=== PATIENT | female | born 1980 | race Caucasian/White ===

== ENCOUNTER 2017-01-31 11:13 | Inpatient (IN) | payer OTHER ==
[2017-01-31] MEDS ORDERED: BETAMET ACET/BETAMET NA PH 30 MG/5 ML VIAL IM ONE (12:00)
[2017-01-31 12:31] VITALS: BMI 27.8
[2017-01-31 13:39] LABS: ALBUMIN 2.9 g/dl (3.4-5.0); ALK PHOS 143 U/L (45-117); ANION GAP 9 (8-16); BILIRUBIN,TOTAL 0.5 mg/dL (0.2-1.0); CALCIUM 8.5 mg/dL (8.5-10.1); CO2 24 mmol/L (21-32); CREATININE 0.4 mg/dL (0.55-1.02); GLUCOSE,RANDOM 97 mg/dL (74-106); SGOT/AST 18 U/L (15-37); SGPT/ALT 15 U/L (12-78); TOT PROT 6.4 g/dl (6.4-8.2)
[2017-01-31 13:53] LABS: INR 0.95 (0.82-1.09); PROTHROMBIN TIME (PATIENT) 10.4 SEC (9.98-11.88)
--- NOTE | 2017-01-31 14:26 | HP ---
Past Medical History - Primary Care Physician PCP:: Mariel Camarena - Admission Chief Complaint: 36yo P1 @ 36.4wks with IUGR, Oligohydramnious, late transfer of care, prior c/s History of Present Illness: 1. Late transfer from [facility] @ 33 wks 2. IUGR < 3%, detected 1st appointment with [facility], elevated dopplers 3. Oligohydramnious 4.AMA - 5.h/o c/section History Source: Patient, Family Member Limitations to Obtaining History: Language Barrier - Past Medical History ...: 2 ...Para: 1 ...Term: 1 ...: 0 ...Spon : 0 ...Induced : 0 ...Multiple Gestation: 0 ...LMP: 05/21/16 ...EDC by [facility]: 02/24/17 - Past Surgical History Past Surgical History: Yes: Hx Myomectomy: No Hx Transabdominal Cerclage: No - Smoking History Smoking history: Never smoked Have you smoked in the past 12 months: No - Alcohol/Substance Use Hx Alcohol Use: No History of Substance Use: reports: None - Social History Usual Living Arrangement: Yes: With Spouse Home Medications - Allergies Allergies/Adverse Reactions: Allergies Allergy/AdvReac Type Severity Reaction Status Date / Time No Known Allergies Allergy Verified 01/30/17 14:12 - Home Medications Home Medications: Ambulatory Orders NK [No Known Home Medication] 01/30/17 Review of Systems - Review of Systems Constitutional: reports: No Symptoms Eyes: reports: No Symptoms HENT: reports: No Symptoms Neck: reports: No Symptoms Cardiovascular: reports: No Symptoms Respiratory: reports: No Symptoms Gastrointestinal: reports: No Symptoms Genitourinary: reports: No Symptoms Breasts: reports: No Symptoms Reported Musculoskeletal: reports: No Symptoms Integumentary: reports: No Symptoms Neurological: reports: No Symptoms Endocrine: reports: No Symptoms Hematology/Lymphatic: reports: No Symptoms Psychiatric: reports: No Symptoms Physical Exam - Maternity Vital Signs: Vital Signs Temperature 98.4 F 01/31/17 12:13 Pulse Rate 65 01/31/17 12:13 Respiratory Rate 14 01/31/17 12:13 Blood Pressure 107/48 01/31/17 12:13 O2 Sat by Pulse Oximetry (%) Constitutional: Yes: Well Nourished HENT: Yes: WNL Neck: Yes: WNL Cardiovascular: Yes: WNL Lungs: Clear to auscultation - Abdominal Exam/OB Fundal Height: 34 Number of Fetuses: Single Presentation: Vertex Contractions: No Monitor Mode: External Heart Rate Location: Midline Category: I Accelerations: Uniform Decelerations: None - Vaginal Exam/OB Vaginal Bleediing: No Amniotic Membrane Status: Intact Presentation: Vertex/Position Station: -3 - Physical Exam Musculoskeletal: Yes: WNL Extremities: Yes: WNL Edema: No Integumentary: Yes: WNL Psychiatric: Yes: WNL - Labs Lab Results: CBC, BMP 01/31/17 12:45 Problem List - Problems (1) Oligohydramnios antepartum Code(s): O41.00X0 - OLIGOHYDRAMNIOS, UNSP TRIMESTER, NOT APPLICABLE OR UNSP (3) Advanced maternal age (AMA) in Code(s): SGL7664 - (4) History of delivery, antepartum Code(s): O34.219 - MATERNAL CARE FOR UNSP TYPE SCAR FROM PREVIOUS DEL Assessment/Plan 36 yo P1 @ 36.4 wks with IUGR/Oligo admit for repeat c/section FHR reasuring Statistical Analyst for delivery Anesthesia aware NPO, IVF, Ancef prior to incision
[2017-01-31] MEDS ORDERED: ONDANSETRON 4 MG/2 ML VIAL IVPB PRN (15:24)
[2017-01-31] MEDS ORDERED: morphine SULFATE/Preservative Free 0.5 MG/ML (1cc Syringe) SPIN ONE (15:24)
[2017-01-31 15:33] LABS: ARTERIAL BLD GAS O2 SATURATION 38.6 % (90-98.9); ARTERIAL BLOOD GAS BASE EXCESS -2.8 meq/l (-2-2); ARTERIAL BLOOD GAS HCO3 23.5 meq/L (22-26); ARTERIAL BLOOD GAS pH 7.31 (7.35-7.45)
[2017-01-31 15:34] LABS: ARTERIAL BLOOD GAS PO2 20.2 mmHg (80-100)
[2017-01-31 15:35] LABS: ARTERIAL BLD GAS O2 SATURATION 67.4 % (90-98.9); ARTERIAL BLOOD GAS BASE EXCESS -2.1 meq/l (-2-2); ARTERIAL BLOOD GAS HCO3 22.9 meq/L (22-26); ARTERIAL BLOOD GAS pH 7.36 (7.35-7.45)
[2017-01-31 15:36] LABS: ARTERIAL BLOOD GAS PO2 30.9 mmHg (80-100)
[2017-01-31] MEDS ORDERED: diphenhydrAMINE HCL 25 MG CAPSULE (FP) PO PRN (16:00)
[2017-01-31] MEDS ORDERED: OXYTOCIN 20 UNITS in 0.9% NS 1,000 ML IV SCH (16:00)
[2017-01-31] MEDS ORDERED: WITCH HAZEL 50% (TUCKS) 40 PAD/JAR PAD TP PRN (16:00)
[2017-01-31] MEDS ORDERED: BENZOCAINE 28 GM HEMORRHOIDAL OINTMENT PR PRN (16:00)
[2017-01-31] MEDS ORDERED: BENZOCAINE 20% 57 GM BOTTLE TP PRN (16:00)
[2017-01-31] MEDS ORDERED: oxyCODONE HCL 5 MG TABLET PO PRN ×2 (16:00)
[2017-01-31] MEDS ORDERED: IBUPROFEN 600 MG TABLET (FP) PO PRN (16:00)
[2017-01-31] MEDS ORDERED: METHYLERGONOVINE MALEATE 0.2 MG/1 ML AMP IM PRN (16:00)
[2017-01-31] MEDS ORDERED: IBUPROFEN 800 MG/8 ML IJ IVPB PRN (16:00)
--- NOTE | 2017-01-31 16:08 | OP ---
Operative Note - Note: Operative Date: 01/31/17 Pre-Operative Diagnosis: 36 yo P1 @ 36.4wks with prior c/s, IUGR, Oligohydramnious, s/p Celestone Operation: Repeat lower segment transverse c/section Findings: 1. Bilobed Placenta 2. Normal tubes, ovaries, uterus 3 Viable Female , APGARs 9/9, Rollout Manager at delivery Post-Operative Diagnosis: Same as Pre-op Surgeon: Mariel Camarena Sandwich And Drink Cart Operator: Michele Boyer Anesthesiologist/COMMERCIAL FRONT LOAD DRIVER: Donaldo Bernardo Anesthesia: Spinal Specimens Removed: 1.Viable Female , APGARs 9/9. 2. Bilobed placenta Estimated Blood Loss (mls): 600 Drains, Volume Out (mls): 600 Fluid Volume Replaced (mls): 1,000 Operative Report Dictated: Yes
[2017-01-31] MEDS ORDERED: TUBERCULIN PPD 5 TU/0.1ML SYRINGE (IN PATIENT USE ONLY) ID ONE (16:15)
[2017-01-31] MEDS ORDERED: ELECTROLYTE-148 SOLN 500 ML IV ONE (16:47)
[2017-01-31] MEDS: DEXTROSE 5%-LACTATED RINGERS 1,000 ML IV SCH (18:25)
[2017-02-01] MEDS: DEXTROSE 5%-LACTATED RINGERS 1,000 ML IV SCH (01:29)
[2017-02-01] MEDS: CEFAZOLIN (PRE-DOCKED) 50 ML IVPB SCH ×2 (01:29→09:30)
[2017-02-01 07:31] LABS: BASOPHIL 0.1 % (0-2.0); MCH 31.8 pg (25.7-33.7); MCHC 33.1 g/dl (32.0-36.0); MEAN CELL VOLUME 96.2 fl (80-96); MEAN PLT VOLUME 7.9 fl (7.5-11.1); NEUTROPHILS 85.4 % (42.8-82.8); PLATELET COUNT 215 K/MM3 (134-434); RDW 13.4 % (11.6-15.6); WHITE BLOOD COUNT 15.2 K/mm3 (4.0-10.0)
--- NOTE | 2017-02-01 07:46 | PN ---
Post Progress Note - Subjective Subjective: No complaints, pain well controlled. No flatus, had vomiting yesterday. Post Day: 1 Type of Delivery: Repeat C/S Vital Signs: Vital Signs Temperature 98.6 F 02/01/17 06:00 Pulse Rate 60 02/01/17 06:00 Respiratory Rate 18 02/01/17 06:00 Blood Pressure 103/58 02/01/17 06:00 O2 Sat by Pulse Oximetry (%) 100 01/31/17 16:45 Breast Exam: Yes: Soft Uterus: Yes: Fundus Firm, Fundus below umbilicus, Non-tender Incision: Yes: Dressing dry and intact Abdomen/GI: Yes: Abdomen soft, Tolerating PO Lochia: Yes: Rubra Lochia, amount: Small Extremities: Yes: Calves non-tender Perineum: Yes: Intact Activity: Ambulating - Labs Labs: CBC WBC 15.2 K/mm3 (4.0-10.0) H D 02/01/17 06:10 RBC 3.82 M/mm3 (3.60-5.2) 02/01/17 06:10 Hgb 12.2 GM/dL (10.7-15.3) 02/01/17 06:10 Hct 36.7 % (32.4-45.2) 02/01/17 06:10 MCV 96.2 fl (80-96) H 02/01/17 06:10 MCH 31.8 pg (25.7-33.7) 02/01/17 06:10 MCHC 33.1 g/dl (32.0-36.0) 02/01/17 06:10 RDW 13.4 % (11.6-15.6) 02/01/17 06:10 Plt Count 215 K/MM3 (134-434) 02/01/17 06:10 MPV 7.9 fl (7.5-11.1) 02/01/17 06:10 Neutrophils % 85.4 % (42.8-82.8) H 02/01/17 06:10 Lymphocytes % 9.5 % (8-40) 02/01/17 06:10 Monocytes % 5.0 % (3.8-10.2) 02/01/17 06:10 Eosinophils % 0.0 % (0-4.5) 02/01/17 06:10 Basophils % 0.1 % (0-2.0) 02/01/17 06:10 Assessment/Plan 36yo P2, POD#1 s/p primary LT C/S, doing well stable, afebrile. care instructions reviewed. Continue routine postop care. Ambulation encouraged.
--- NOTE | 2017-02-01 08:34 | PN ---
Progress Note (short form) - Note Progress Note: Anesthesia postop note 36 y/o F s/p spinal anesthesia for section, duramorph for postop pain management POD#1, vss, aaox3, pain well controlled, sensorymotor intact distally No anesthesia complications.
[2017-02-01] MEDS ORDERED: BISACODYL 10 MG SUPP.RECT RC PRN (16:00)
[2017-02-01] MEDS: SENNOSIDES/DOCUSATE COMBO (SENNA PLUS) TABLET (UD) PO PRN (20:56)
--- NOTE | 2017-02-02 08:15 | PN ---
Post Progress Note - Subjective Subjective: Patient without nausea or vomiting currently + ambulation + passing gas Noted to have wound opening by nursing staff Post Day: 2 Type of Delivery: Repeat C/S Vital Signs: Vital Signs Temperature 98.1 F 02/01/17 20:57 Pulse Rate 64 02/01/17 20:57 Respiratory Rate 20 02/01/17 20:57 Blood Pressure 114/54 02/01/17 20:57 O2 Sat by Pulse Oximetry (%) 100 01/31/17 16:45 Uterus: Yes: Fundus Firm, Fundus below umbilicus Incision: Yes: Other (wound separation R aspect ~5 cm) Abdomen/GI: Yes: Abdomen soft, Tender (incisional). No: Abdominal Distention Lochia: Yes: Serosa Lochia, amount: Small Extremities: Yes: Calves non-tender Activity: Ambulating - Labs Labs: CBC WBC 15.2 K/mm3 (4.0-10.0) H D 02/01/17 06:10 RBC 3.82 M/mm3 (3.60-5.2) 02/01/17 06:10 Hgb 12.2 GM/dL (10.7-15.3) 02/01/17 06:10 Hct 36.7 % (32.4-45.2) 02/01/17 06:10 MCV 96.2 fl (80-96) H 02/01/17 06:10 MCH 31.8 pg (25.7-33.7) 02/01/17 06:10 MCHC 33.1 g/dl (32.0-36.0) 02/01/17 06:10 RDW 13.4 % (11.6-15.6) 02/01/17 06:10 Plt Count 215 K/MM3 (134-434) 02/01/17 06:10 MPV 7.9 fl (7.5-11.1) 02/01/17 06:10 Neutrophils % 85.4 % (42.8-82.8) H 02/01/17 06:10 Lymphocytes % 9.5 % (8-40) 02/01/17 06:10 Monocytes % 5.0 % (3.8-10.2) 02/01/17 06:10 Eosinophils % 0.0 % (0-4.5) 02/01/17 06:10 Basophils % 0.1 % (0-2.0) 02/01/17 06:10 Assessment/Plan 36 yo POD # 2 s/p R CD, afebrile, vital signs stable, with wound opening 1. Plan for reapproximation at bedside with lidocaine and trey 2. Will continue routine postoperative care 3. Will start keflex QUID for risk of infectino 4. Will continue to monitor
--- NOTE | 2017-02-02 08:54 | OP ---
DATE OF OPERATION: 01/31/2017 PREOPERATIVE DIAGNOSIS: A 36-year-old para 1 at 36 and 4/7 weeks with prior section with intrauterine growth restriction, oligohydramnios, status post Celestone. POSTOPERATIVE DIAGNOSES: 1. A 36-year-old para 1 at 36 and 4/7 weeks with prior section with intrauterine growth restriction, oligohydramnios, status post Celestone. 2. Finding of bilobed placenta. OPERATION: Repeat lower-segment transverse section. ADDITIONAL FINDINGS: Normal uterus, tubes, and ovaries and a viable female with Apgars 9 and 9. Curtain Supervisor was present at the delivery, and weight was 4 pounds 6 ounces. SURGEON: Mariel Camarena MD PESTICIDE CONTROL INSPECTOR: NHI Reed ANESTHESIOLOGIST: Donaldo Bernardo MD ANESTHESIA: Spinal. DESCRIPTION OF OPERATIVE PROCEDURE: After ensuring informed consent, patient was brought to the operating room where she was placed in dorsal supine position with left lateral displacement. After assuring adequate level of anesthesia, Pfannenstiel skin incision was made with a scalpel and carried down to the level of fascia with the Bovie cautery. Fascia was nicked in the midline and dissected bilaterally with Bovie cautery and subsequently dissected off the rectus abdominis muscle inferiorly and then superiorly with the cautery. The muscle was tented at the median raphe, and the scalpel was used to make a gentle incision in the midline with good visualization of underlying organs. The incision was dissected inferiorly, and subsequently, peritoneum was identified, tented with Lore clamps, and also, the nelida incision was made with the scalpel. The peritoneum was entered sharply with good visualization of underlying organs and dissected inferiorly and superiorly with Bovie cautery. The bladder was retracted downwards with the lower edge of the [place]. The vesicouterine peritoneum was identified, tented with the pickups and was dissected with Metzenbaum scissors bilaterally. Bladder flap was created and brought down with lower edge of the [place]. Uterine incision was made with the scalpel and dissected bilaterally with bandage scissors. 's head in right OT position was delivered atraumatically. The rest of the 's body was delivered atraumatically. The cord blood was brought towards the fetus and delayed cord clamping was performed and cord was clamped and cut. Infant was handed to the awaiting fruit harvester. A piece of cord was removed and sent for blood gas sampling. The placenta was delivered without difficulty and was found to be abnormally shaped, with 2 discrete separate lobes to the placenta. The uterus subsequently was cleared from clots and debris and sutured with 0 Biosyn suture in running, locking fashion, and subsequently, the second imbricating layer was created with 0 Biosyn. Excellent hemostasis was noted. Normal tubes and ovaries were visualized. Abdomen was cleared of clots and debris, and the peritoneum was closed with 0 Biosyn stitch in a running fashion. The rectus abdominis muscle was brought to the midline, reapproximating sutures of 0 Biosyn with several figure-of-8's, and fascia was subsequently repaired with 0 Vicryl in running fashion. The subcutaneous was reapproximated with 2-0 chromic, and subcuticular stitch was made with 4-0 Biosyn. Excellent hemostasis was noted. Estimated blood loss was 600 mL. Patient received 1000 mL of Plasmalyte and drained 600 mL of urine and subsequently was brought to the recovery room in stable condition after sponge and instrument count was correct x2. Azul [id number]
[2017-02-02] MEDS: CEPHALEXIN MONOHYDRATE 500 MG CAPSULE (UD) PO SCH ×3 (12:03→23:58)
--- NOTE | 2017-02-02 16:03 | PATH ---
Surgical Pathology Report Patient Name: CATHERINE ALFORD Med. Rec. #: [id number] /Age/Gender: 1980 (Age: 36) / F Account: [id number] Location: [facility] OBS/NATURAL RESOURCE OFFICER Taken: 01/31/2017 Received: 02/01/2017 Reported: 02/02/2017 Physicians: Mariel Camarena M.D. Specimen(s) Received PLACENTA Clinical History ,36.4 weeks IUP, IUGR, oligo, C/s x5 Scheduled repeat c/section Final Diagnosis PLACENTA, DELIVERY: MULTIFOCALLY DISRUPTED, SMALL (<400 GM), THIRD TRIMESTER PLACENTA WITH FOCAL VILLOUS DYSMATURITY, MINIMAL PREVILLOUS, PERIVILLOUS, AND PRECHORIONIC FIBRIN DEPOSITION, THREE VESSEL UMBILICAL CORD, AND UNREMARKABLE PLACENTAL MEMBRANES. Electronically Signed Tomás Christensen M.D. Gross Description The specimen is received fresh, labeled "placenta" and is a 220 gm, 19.0 x 12.0 x 1.7 cm placenta with attached membranes and umbilical cord. The attached membranes are ch with focal opacities and insert marginally. The umbilical cord measures 13 cm in length and averages 0.8 cm in diameter. The cord inserts eccentrically, 3.0 cm to the nearest margin. No true knots or strictures are identified. Cut surface of the umbilical cord reveals 3 vessels. The surface is aaron-blue with minimal fibrin deposition and appropriate caliber vessels. The maternal surface is red-brown with focal defects. Sectioning reveals red-brown, spongy parenchyma. No focal lesions are identified. Wheelabrator Operator sections are submitted in three cassettes as follows: 1- membrane rolls and umbilical cord; 2-3- full thickness sections of placenta. AF/02/01/2017 final/02/01/2017
[2017-02-02] MEDS: SIMETHICONE 80 MG TAB.CHEW (FP) PO PRN ×2 (16:18→22:29)
[2017-02-02] MEDS: IBUPROFEN 600 MG TABLET (FP) PO PRN ×2 (16:19→22:29)
[2017-02-02] MEDS: ACETAMINOPHEN 325 MG TABLET (FP) PO PRN ×2 (16:20→22:30)
[2017-02-02] MEDS: SENNOSIDES/DOCUSATE COMBO (SENNA PLUS) TABLET (UD) PO PRN (22:33)
[2017-02-03] MEDS: CEPHALEXIN MONOHYDRATE 500 MG CAPSULE (UD) PO SCH ×4 (06:07→23:10)
[2017-02-03 06:44] LABS: BASOPHIL 0.3 % (0-2.0); EOSINOPHIL 0.2 % (0-4.5); MCH 31.7 pg (25.7-33.7); MCHC 33.6 g/dl (32.0-36.0); MEAN CELL VOLUME 94.3 fl (80-96); MEAN PLT VOLUME 7.8 fl (7.5-11.1); NEUTROPHILS 71.7 % (42.8-82.8); PLATELET COUNT 236 K/MM3 (134-434); RDW 13.7 % (11.6-15.6); WHITE BLOOD COUNT 10.9 K/mm3 (4.0-10.0)
--- NOTE | 2017-02-03 07:33 | PN ---
Progress Note (short form) - Note Progress Note: pod 3 s/p c/s ,has mild incisional pian , afebrile, ambulating CBC, BMP 02/03/17 06:15 01/31/17 12:45 Last Vital Signs Temp Pulse Resp BP Pulse Ox 98.5 F 61 20 109/58 100 02/02/17 22:00 02/02/17 22:00 02/02/17 22:00 02/02/17 22:00 01/31/17 16:45 abdomen soft, no distension, no cva incision dry, clean , covered no calf tenderness plan wound care, pain management
[2017-02-03] MEDS: ACETAMINOPHEN 325 MG TABLET (FP) PO PRN ×2 (10:29→18:43)
[2017-02-03] MEDS: SIMETHICONE 80 MG TAB.CHEW (FP) PO PRN ×2 (10:31→18:44)
[2017-02-03] MEDS: IBUPROFEN 600 MG TABLET (FP) PO PRN ×2 (10:31→18:42)
[2017-02-03] MEDS: SENNOSIDES/DOCUSATE COMBO (SENNA PLUS) TABLET (UD) PO PRN (23:13)
[2017-02-04] MEDS: CEPHALEXIN MONOHYDRATE 500 MG CAPSULE (UD) PO SCH ×3 (05:55→18:35)
[2017-02-04] MEDS: SIMETHICONE 80 MG TAB.CHEW (FP) PO PRN ×2 (11:03→17:08)
[2017-02-04] MEDS: ACETAMINOPHEN 325 MG TABLET (FP) PO PRN ×3 (11:04→21:00)
[2017-02-04] MEDS: IBUPROFEN 600 MG TABLET (FP) PO PRN ×2 (11:04→17:08)
--- NOTE | 2017-02-04 11:06 | PN ---
Post Progress Note - Subjective Subjective: No complaints. Reports mild left side incisional pain. No fever or chills Post Day: 4 Type of Delivery: Repeat C/S Vital Signs: Vital Signs Temperature 98.4 F 02/03/17 23:23 Pulse Rate 20 L 02/03/17 23:23 Respiratory Rate 18 02/03/17 23:23 Blood Pressure 107/65 02/03/17 23:23 O2 Sat by Pulse Oximetry (%) 100 01/31/17 16:45 Breast Exam: Yes: Soft Uterus: Yes: Fundus Firm, Non-tender Incision: Yes: Sutures intact Abdomen/GI: Yes: Abdomen soft, Passing flatus, Tolerating PO Lochia: Yes: Rubra Lochia, amount: Small Extremities: Yes: Calves non-tender Perineum: Yes: Intact Activity: Ambulating - Labs Labs: CBC WBC 10.9 K/mm3 (4.0-10.0) H 02/03/17 06:15 RBC 3.81 M/mm3 (3.60-5.2) 02/03/17 06:15 Hgb 12.1 GM/dL (10.7-15.3) 02/03/17 06:15 Hct 35.9 % (32.4-45.2) 02/03/17 06:15 MCV 94.3 fl (80-96) 02/03/17 06:15 MCH 31.7 pg (25.7-33.7) 02/03/17 06:15 MCHC 33.6 g/dl (32.0-36.0) 02/03/17 06:15 RDW 13.7 % (11.6-15.6) 02/03/17 06:15 Plt Count 236 K/MM3 (134-434) 02/03/17 06:15 MPV 7.8 fl (7.5-11.1) 02/03/17 06:15 Neutrophils % 71.7 % (42.8-82.8) 02/03/17 06:15 Lymphocytes % 20.3 % (8-40) D 02/03/17 06:15 Monocytes % 7.5 % (3.8-10.2) 02/03/17 06:15 Eosinophils % 0.2 % (0-4.5) D 02/03/17 06:15 Basophils % 0.3 % (0-2.0) 02/03/17 06:15 Assessment/Plan 36yo P2, POD#4 s/p repeat LT C/S, doing well stable, afebrile. Incison is s/p spontaneous skin/wound separation that was repaired at bedside on 02/02/17. The incision is healing well. No s/sx's of infection. Plan to continue abx x 7d care instructions reviewed. Continue routine postop care. Ambulation encouraged.
--- NOTE | 2017-02-04 11:09 | DS ---
Physical Exam-LEAN MANAGER Vital Signs: Vital Signs Temperature 98.4 F 02/03/17 23:23 Pulse Rate 20 L 02/03/17 23:23 Respiratory Rate 18 02/03/17 23:23 Blood Pressure 107/65 02/03/17 23:23 O2 Sat by Pulse Oximetry (%) 100 01/31/17 16:45 Constitutional: Yes: Well Nourished, No Distress, Calm Eyes: Yes: WNL, Conjunctiva Clear HENT: Yes: WNL, Atraumatic, Normocephalic Neck: Yes: WNL, Supple, Trachea Midline Cardiovascular: Yes: WNL, Regular Rate and Rhythm Respiratory: Yes: WNL, Regular, CTA Bilaterally Gastrointestinal: Yes: Normal Bowel Sounds, Soft Renal/: Yes: WNL Pelvis: Yes: WNL External Genitalia: Yes: Normal Internal Exam Deferred: Yes ....Post : Yes: Uterus firm, Uterus non-tender, Slight lochia rubra Breast(s): Yes: WNL Musculoskeletal: Yes: WNL Extremities: Yes: WNL Edema: Yes Edema: LLE: Trace, RLE: Trace Integumentary: Yes: WNL Wound/Incision: Yes: Clean/Dry, Well Approximated, Sutures Intact Neurological: Yes: WNL, Alert, Oriented ...Motor Strength: WNL Psychiatric: Yes: WNL, Alert, Oriented Labs: CBC, BMP 02/03/17 06:15 01/31/17 12:45 Delivery - Delivery Section: Repeat, Low Flap Transverse Type of Anesthesia: Spinal Episiotomy/Laceration: None EBL (cc): 600 Delivery, Single - Stages of Labor Date of Delivery: 01/31/17 Time of Delivery: 14:49 Time Placenta Delivered: 14:50 Placenta: Yes: Manual Removal - Condition of Infant Control Inspector/Second Time Worker Present: Yes Name: Jacinto Mandel Infant Gender: Female Weight: 1.984 kg Position: Right, OT Total Hours ROM (Hrs/Mins): 2M - 1 Minute Total Score: 9 5 Minutes Total Score: 9 - Rule Feeding Plan Initial Plan: Exclusive throughout hospitalization Benefits of Exclusively reinforced: Yes Discharge Summary Reason For Visit: C SECTION Current Active Problems Advanced maternal age (AMA) in (Acute) History of delivery, antepartum (Acute) IUGR (intrauterine growth retardation) (Acute) Oligohydramnios antepartum (Acute) Procedures: Principal: Repeat LT C/S Other Procedures: Repair of obstetric wound separation. Hospital Course: Recovering well. Condition: Good - Instructions Diet, Activity, Other Instructions: Physical activity Resume your normal everyday activity as tolerated no heavy lifting or exercise until seen by your surgeon. You may walk unlimited shazia of and climb stairs. You may resume driving the car when you feel safe and comfortable behind the wheel. No sexual activity as instructed. Wound care If you have a bandage, leave it on, and keep dry for 48-72 hours. After that time discard the outer bandage. If they are tapes on the skin under the out of bandage leave them in place. They will peel off in the next 7 to 10 days. Do Not Peel them off. You may shower the day after surgery. If there are tapes present on the skin, you may shower over them. Diet There are no dietary restrictions. Eat healthy, high-fiber foods. Drink 6 to 8 glasses of liquid each day. This will assist in keeping your bowels are regular. Pain management You may take Tylenol or acetaminophen or Ibuprofen (for example, Motrin, Advil etc.) from my pain prescription medication is ordered should be taken as prescribed for moderate to severe pain. Call MD for any of the following: Severe pain not relieved by medication Fever of 101 or higher Excessive bleeding or drainage on dressing Inability to urinate Referrals: Mariel Camarena MD [Staff Physician] - Disposition: HOME - Home Medications Comprehensive Discharge Medication List: Ambulatory Orders NK [No Known Home Medication] 01/30/17
[2017-02-04 13:50] VITALS: BP 98/45; PULSE 58; TEMP 98.2
== END 2017-02-04 21:10 | disposition home or self-care (01) | DRG 540 ==
LOC: JLDR 11:13 → J3W 17:15
PROVIDERS: ADMIT Obstetrics & Gynecology; ATTEND Obstetrics & Gynecology
PROC: 10D00Z1 Extraction of Products of Conception, Low, Open Approach (ICD-10-PCS; principal; 2017-01-31)
DX: O36.5930 Maternal care for other known or suspected poor fetal growth, third trimester, not applicable or unspecified (principal); O41.00X0 Oligohydramnios, unspecified trimester, not applicable or unspecified; Z3A.38 38 weeks gestation of pregnancy; Z37.0 Single live birth
CPT/HCPCS: 36415; 36600; 80053; 82803; 85025; 85610; 85730; 86593; 86850; 86900; 86901; 88307-TC; 96372